=== PATIENT | female | born 1940 | race Caucasian/White ===

== ENCOUNTER 2023-10-29 11:16 | Emergency (ER) | payer OTHER, SELFPAY ==
--- NOTE | ~2023-10-29 | XR_ITS ---
EXAMINATION: XR chest 2V 10/29/2023 12:10 INDICATION: Cough and shortness of breath. Congestion. PROCEDURE: 2 view chest COMPARISON: 10/25/2014 FINDINGS: The lungs are clear. The cardiomediastinal silhouette is within normal limits. There are no pleural effusions. There is no pneumothorax suspected. IMPRESSION: 1: NO ACUTE CARDIOPULMONARY DISEASE. Reviewed, dictated and finalized at location L. GARMENT SEWING MACHINE OPERATOR
[2023-10-29 11:38] VITALS: BP 151/79; PULSE 81; RESP 16; TEMP 36.8; O2SAT 97
--- NOTE | 2023-10-29 12:01 | ED.URI ---
HPI - URI/Sore Throat General Chief Complaint: Upper Respiratory Infection Stated Complaint: Chest Congestion Time Seen by Provider: 10/29/23 11:45 Source: patient Mode of arrival: ambulatory Limitations: no limitations History of Present Illness HPI Narrative: Prakash is an 82-year-old female patient presenting to the clinic today with complaints of runny nose, cough, and chest congestion x 10 days. Phlegm is clear. she reports she is having some mild shortness of breath. No fever or chills MD elicited complaint: sore throat and nasal congestion Related Data Allergies Allergy/AdvReac Type Severity Reaction Status Date / Time No Known Allergies Allergy Mild Verified 05/21/23 10:08 Review of Systems Review of Systems: Pertinent positives per HPI. Patient denies any fever, chills, rash, headache, visual changes, dizziness, chest pain, palpitations, nausea, vomiting, diarrhea, constipation, abdominal pain, or any urinary issues. PMFSH Social History Social History Smoking status: Never smoker Alcohol intake: current Drinks per week: 1 Substance use: never Lack of Transportation: No Lack of Food: Never True Current Housing: I Have Housing Concerned About Future Housing: No Difficulty Paying Gas/Electric Bills: No Difficulty Paying for Meds: No Currently Unemployed: No Education: High School Diploma/GED Difficulty w/ Childcare or Family Care: No Comments At the time of my signature, I reviewed and agree with the nursing past medical, surgical, social, and family history. There is no relevant family history pertinent to the patient complaint. Exam Narrative: General: Well-developed, well nourished, in no apparent distress Head: Normocephalic, atraumatic Eyes: Pupils equally round and reactive to light bilaterally, EOM intact, sclera and conjunctive clear, no discharge, lids normal Ears: TMs intact and clear, ear canals clear, no drainage, grossly hearing normal. Nose: Nares patent, clear discharge, no inflammation, no sinus tenderness. Mouth: Oral pharynx without lesions or masses, good dentition, MMM. Neck: Supple, trachea midline, no enlargement of anterior or posterior cervical nodes, no thyroid masses or goiter palpable. Cardio: Regular rate and rhythm, s1 and s2 normal, no murmur appreciated. Resp: Clear to auscultation bilaterally, no rhonchi, rales, wheezing or rubs Course Course Emergency Course: Portions of this record may have been created with voice recognition software. Level of Care: Express Care Visit Vital Signs Vital signs: Vital Signs Temperature 36.8 C 10/29/23 11:38 Pulse Rate 81 10/29/23 11:38 Respiratory Rate 16 10/29/23 11:38 Blood Pressure 151/79 H 10/29/23 11:38 Pulse Oximetry 97 10/29/23 11:38 Temperature 36.8 C 10/29/23 11:38 Pulse Rate 81 10/29/23 11:38 Respiratory Rate 16 10/29/23 11:38 Blood Pressure 151/79 H 10/29/23 11:38 Pulse Oximetry 97 10/29/23 11:38 Vital signs reviewed MDM - URI/Sore Throat MDM Narrative Medical decision making narrative: At the time of visit patient is resting comfortably on the exam table. Patient appears to be nontoxic. Chest x-rays negative for any sign of pneumonia. Supportive measures were discussed with the patient and they voiced understanding discharge instructions and agrees to treatment plan. Return precautions reviewed Differential Diagnosis Differential diagnosis: Likely upper respiratory infection, otitis media, sinusitis, viral infection, bronchitis, influenza, pharyngitis and other (COVID) Imaging Data Radiologist's impression: ITS Impressions Chest X-Ray 10/29/23 12:19 IMPRESSION: 1: NO ACUTE CARDIOPULMONARY DISEASE. Discharge Plan Discharge Clinical Impression: Upper respiratory infection Qualifiers: URI type: unspecified URI Qualified Code(s): J06.9 - Acute upper respirator
== END 2023-10-29 12:37 | disposition home or self-care (01) ==
PROVIDERS: Emergency Provider Nurse Practitioner Family; PCP Family Medicine
DX: J06.9 Acute upper respiratory infection, unspecified (principal)
CPT/HCPCS: 71046; 99213; G0463

== ENCOUNTER 2024-03-05 11:05 | Outpatient (CLI) | payer OTHER, SELFPAY ==
--- NOTE | 2024-03-05 11:23 | ECG_ITS ---
SEE SCANNED COPY FOR CONFIRMED REPORT MTDD
== END 2024-03-05 11:06 | disposition home or self-care (01) ==
LOC: ANHCARD 11:08
PROVIDERS: PCP Family Medicine; Visit Provider Emergency Medicine
DX: I49.9 Cardiac arrhythmia, unspecified (principal)
CPT/HCPCS: 93005

== ENCOUNTER 2024-05-01 09:27 | Outpatient (CLI) | payer OTHER, SELFPAY ==
--- NOTE | 2024-05-01 09:38 | EST_ITS ---
Patient Info Name: Felicia Lock Age: 83 years : 1940 Gender: Female Ht: 61 in Wt: 129 lbs BSA: 1.60 m2 HR: 65 bpm BP: 191 / 78 mmHg Heart Rhythm: Sinus Rhythm Exam Date: 05/01/2024 9:49 AM Exam Location: [facility] Patient Status: Outpatient Admit Date: 05/01/2024 Staff Ordering Physician: Galdino Sequeira DO Attending Provider: Galdino Sequeira DO Exercise Technologist: Imelda Mccallum CT Exercise Physician: Galdino Sequeira DO Exam Type: CA stress test treadmill Study Info Indications R00.2 - Palpitations A treadmill exercise stress test was performed. Summary 1. 1. Negative Aidan exercise stress test for ischemic ST changes by ECG criteria. 2. 2. Baseline hypertension. 3. 3. Appropriate HR response to exercise. 4. 4. Appropriate HR recovery at 1 minute post exercise. 5. 5. No imaging with stress testing. 6. 6. Patient informed of the above results. Protocol: Aidan Stress ECG Details Stage: REST Duration (min): 2 min : 7 sec Speed (mph): 0.0 Grade (%): 0 HR (bpm): 65 SBP (mmHg): 191 DBP (mmHg): 78 METS: --- Stage: REST Duration (min): 6 min : 54 sec Speed (mph): 0.0 Grade (%): 0 HR (bpm): 63 SBP (mmHg): 191 DBP (mmHg): 81 METS: --- Stage: STAGE 1 Duration (min): 1 min : 0 sec Speed (mph): 1.7 Grade (%): 10 HR (bpm): 85 SBP (mmHg): 191 DBP (mmHg): 81 METS: --- Stage: STAGE 1 Duration (min): 2 min : 0 sec Speed (mph): 1.7 Grade (%): 10 HR (bpm): 106 SBP (mmHg): 191 DBP (mmHg): 81 METS: --- Stage: STAGE 1 Duration (min): 3 min : 0 sec Speed (mph): 1.7 Grade (%): 10 HR (bpm): 113 SBP (mmHg): 214 DBP (mmHg): 89 METS: --- Stage: STAGE 2 Duration (min): 0 min : 59 sec Speed (mph): 2.5 Grade (%): 12 HR (bpm): 121 SBP (mmHg): 214 DBP (mmHg): 89 METS: --- Stage: RECOVERY Duration (min): 1 min : 0 sec Speed (mph): 0.0 Grade (%): 0 HR (bpm): 105 SBP (mmHg): 214 DBP (mmHg): 89 METS: --- Stage: RECOVERY Duration (min): 2 min : 0 sec Speed (mph): 0.0 Grade (%): 0 HR (bpm): 87 SBP (mmHg): 214 DBP (mmHg): 89 METS: --- Stage: RECOVERY Duration (min): 3 min : 0 sec Speed (mph): 0.0 Grade (%): 0 HR (bpm): 79 SBP (mmHg): 213 DBP (mmHg): 89 METS: --- Stage: RECOVERY Duration (min): 3 min : 9 sec Speed (mph): 0.0 Grade (%): 0 HR (bpm): 80 SBP (mmHg): 213 DBP (mmHg): 89 METS: --- Rest HR: 63 bpm Peak HR: 121 bpm Rest Sys BP: 191 mmHg Peak Sys BP: 214 mmHg Max Pred HR: 137 bpm % Max Pred HR: 88 % Target HR: 116 bpm Max RPP: 25,894 bpm*mmHg Campbell Score: -4 Termination Reason: Reached target heart rate or workload Cardiac Symptoms: Shortness of breath Max ST Seg Deviation: -1.60 mm Total Time: 3 min : 59 sec Rest Day BP: 81 mmHg Peak Day BP: 89 mmHg Angina Score: None Total METS: 6.2 Resting ECG Sinus rhythm, cannot r/o septal infarct. Stress ECG No ST changes. Arrhythmias None. Report Signatures Electronically signed by Jamel
== END 2024-05-01 09:28 | disposition home or self-care (01) ==
PROVIDERS: PCP Emergency Medicine; Visit Provider Internal Medicine Cardiovascular Disease
DX: R00.2 Palpitations (principal)
CPT/HCPCS: 93017

== ENCOUNTER 2024-07-15 07:41 | Outpatient (CLI) | payer OTHER, SELFPAY ==
--- NOTE | ~2024-07-15 | MMUS_ITS ---
EXAMINATION: MM diagnostic shellie BI w claudia, US breast LT limited HISTORY: Palpable left breast lump TECHNIQUE: 3-D tomosynthesis images of the bilateral breasts were performed and synthetic 2-D images were generated. CAD analysis was submitted and interpreted. High resolution limited left breast ultra sound was performed. COMPARISON: 09/02/2015 BREAST PARENCHYMAL COMPOSITION: There are scattered areas of fibroglandular density. FINDINGS: MAMMOGRAPHIC FINDINGS: There is a 1.9 x 1.5 cm spiculated, irregular mass at the 12:00 position left breast posteriorly. No other suspicious parenchymal abnormality seen in either breast. There are scattered benign calcificat ions bilaterally. No suspicious abnormality in the right breast. ULTRASOUND: At the 11:00 position left breast, 9 cm from the nipple, at the area of palpable concern, there is a 1.5 x 1.6 x 1.0 cm irregular hypoechoic mass, which correlates with the mammographic finding. IMPRESSION: 1.5 cm irregular hypoechoic mass at the upper, posterior left breast, as detailed above, which corre lates with mammographic finding, and is highly suspicious for breast neoplasm. Ultrasound-guided biop sy recommended to establish a histologic diagnosis. BI-RADS category 5, highly suggestive of malignancy. Reviewed, dictated and finalized at location M. IMPRESSION: 1.5 cm irregular hypoechoic mass at the upper, posterior left breast, as detai led above, which correlates with mammographic finding, and is highly suspicious for breast neoplasm. Ultrasound-guided biopsy recommended to establish a histo logic diagnosis. BI-RADS category 5, highly suggestive of malignancy.
== END 2024-07-15 07:42 | disposition home or self-care (01) ==
PROVIDERS: PCP Emergency Medicine; Visit Provider Emergency Medicine
DX: N63.20 Unspecified lump in the left breast, unspecified quadrant (principal); R92.8 Other abnormal and inconclusive findings on diagnostic imaging of breast
CPT/HCPCS: 76642; 77062; 77066; G0279

== ENCOUNTER 2024-08-13 07:45 | Outpatient (CLI) | payer OTHER, SELFPAY ==
--- NOTE | ~2024-08-13 | MMUS_ITS ---
US breast biopsy LT w image, MM post biopsy diagnostic LT EXAMINATION: US GUIDED NEEDLE BIOPSY WITH VACUUM ASSISTANCE DATE: 08/13/2024 09:48 CDT INDICATION: Left breast mass seen on recent examination. Ultrasound-guided core biopsy is requested to evaluate for malignancy. BREAST PARENCHYMAL COMPOSITION: Not dense: There are scattered areas of fibroglandular density. TECHNIQUE AND FINDINGS: The risks and potential benefits of the procedure were discussed with the patient, and written inform ed consent was obtained. After sterile preparation of the left breast, 1% lidocaine was utilized for local anesthesia. 1% lidocaine with epinephrine was used for deep anesthesia. A 10G vacuum-assisted biopsy gun needle was advanced through to the outer edge of the region of inter est from a superior approach utilizing sonographic guidance. A total of 4 tissue core samples were o btained through the lesion. An Inrad tissue marker clip was then placed at the biopsy site. Hemostas is was achieved. The patient tolerated procedure well and there was no evidence of immediate complication. The patien t was given verbal instructions partly is from the department. Left breast mammograms to document ti ssue marker clip placement. The tissue samples were submitted to surgical pathology for histologic an alysis. IMPRESSION: 1. Successful ultrasound-guided vacuum-assisted biopsy of left breast mass with post procedure mammo gram for marker placement. Please refer to pathology report for histologic analysis. Reviewed, dictated and finalized at location B. IMPRESSION: 1. Successful ultrasound-guided vacuum-assisted biopsy of left breast mass wit h post procedure mammogram for marker placement. Please refer to pathology repo rt for histologic analysis.
== END 2024-08-13 07:46 | disposition home or self-care (01) ==
PROVIDERS: PCP Emergency Medicine; Visit Provider Nurse Practitioner Family
DX: D05.12 Intraductal carcinoma in situ of left breast (principal)
CPT/HCPCS: 19083; 77065; 88305; 88360; A4648